=== PATIENT | male | born 1965 | race Caucasian/White ===

== ENCOUNTER 2016-04-19 01:11 | Inpatient (IN) | payer BC, OTHER ==
[~2016-04-19] VITALS: Ht 180.3 cm; Wt 89.9 kg
[2016-04-19] VITALS (7 sets, daily range): BP systolic 108–138; RESP 16–18; TEMP 97.5–98.5; Ht 180.3 cm; Wt 89.9 kg
[2016-04-19] MEDS ORDERED: OPTIRAY 350 100 ML VIAL HMH IV ONE (01:12)
[2016-04-19] MEDS ORDERED: ASPIRIN 81 MG CHEW TAB ONE (02:14)
[2016-04-19] MEDS ORDERED: SALINE FLUSH 10 ML FLUSH PRN (04:00)
[2016-04-19] MEDS ORDERED: ONDANSETRON 4 MG VIAL IV PUSH PRN (04:00)
[2016-04-19] MEDS: Atorvastatin 20 MG TAB PO SCH ×2 (05:48→21:35)
[2016-04-19] MEDS: PANTOPRAZOLE 40 MG TAB PO SCH (05:48)
[2016-04-19] MEDS: SODIUM CHLORIDE 0.9% 1,000 ML IV SCH (05:49)
[2016-04-19] MEDS: SODIUM CHLORIDE 0.9% FLUSH BAG 500 ML IV SCH (06:00)
[2016-04-19] MEDS: SALINE FLUSH 10 ML FLUSH SCH ×2 (09:33→21:35)
[2016-04-19] MEDS: Aspirin 325 MG TAB PO SCH (09:35)
[2016-04-19] MEDS: ENOXAPARIN 40 MG/0.4 ML SYR SUBQ SCH (09:35)
[2016-04-20] MEDS: SODIUM CHLORIDE 0.9% 1,000 ML IV SCH (00:54)
[2016-04-20] MEDS: SODIUM CHLORIDE 0.9% FLUSH BAG 500 ML IV SCH (05:32)
[2016-04-20] MEDS: PANTOPRAZOLE 40 MG TAB PO SCH (06:20)
[2016-04-20 07:23] VITALS: BP_SYST 110; RESP 16; TEMP 97.9
[2016-04-20] MEDS: SALINE FLUSH 10 ML FLUSH SCH ×2 (08:00→20:08)
[2016-04-20] MEDS: Aspirin 325 MG TAB PO SCH (08:20)
[2016-04-20] MEDS: ENOXAPARIN 40 MG/0.4 ML SYR SUBQ SCH (08:20)
[2016-04-20 11:00] VITALS: BP_SYST 112; RESP 16; TEMP 97.7
[2016-04-20 16:02] VITALS: BP_SYST 114; RESP 16; TEMP 97.5
[2016-04-20 19:00] VITALS: BP_SYST 129; RESP 18; TEMP 97.9
[2016-04-20] MEDS: Atorvastatin 40 MG TAB PO SCH (20:08)
[2016-04-20 23:50] VITALS: BP_SYST 130; RESP 18; TEMP 97.9
[2016-04-21 03:30] VITALS: BP_SYST 111; RESP 18; TEMP 97.9
[2016-04-21] MEDS: SODIUM CHLORIDE 0.9% FLUSH BAG 500 ML IV SCH (04:22)
[2016-04-21] MEDS: PANTOPRAZOLE 40 MG TAB PO SCH (07:18)
[2016-04-21 08:21] VITALS: BP_SYST 110; RESP 18; TEMP 97.5
[2016-04-21] MEDS: Aspirin 325 MG TAB PO SCH (08:34)
[2016-04-21] MEDS: ENOXAPARIN 40 MG/0.4 ML SYR SUBQ SCH (08:35)
[2016-04-21] MEDS: SALINE FLUSH 10 ML FLUSH SCH ×2 (08:35→20:34)
[2016-04-21 12:02] VITALS: BP_SYST 99; RESP 18; TEMP 97.6
[2016-04-21 17:00] VITALS: BP_SYST 101; RESP 18; TEMP 97.8
[2016-04-21 19:44] VITALS: BP_SYST 102; RESP 18; TEMP 97.8
[2016-04-21] MEDS: Atorvastatin 40 MG TAB PO SCH (20:26)
[2016-04-21 22:52] VITALS: BP_SYST 127; RESP 18; TEMP 98.1
[2016-04-22 03:17] VITALS: BP_SYST 91; RESP 18; TEMP 97.7
[2016-04-22] MEDS: SODIUM CHLORIDE 0.9% FLUSH BAG 500 ML IV SCH (05:17)
[2016-04-22] MEDS: PANTOPRAZOLE 40 MG TAB PO SCH (07:55)
[2016-04-22] MEDS: SALINE FLUSH 10 ML FLUSH SCH ×2 (08:19→20:31)
[2016-04-22] MEDS: Aspirin 325 MG TAB PO SCH (08:19)
[2016-04-22] MEDS: ENOXAPARIN 40 MG/0.4 ML SYR SUBQ SCH (08:20)
[2016-04-22 08:30] VITALS: BP_SYST 108; RESP 19; TEMP 97.4
[2016-04-22 11:56] VITALS: BP_SYST 110; RESP 20; TEMP 97.1
[2016-04-22 15:57] VITALS: BP_SYST 110; RESP 20; TEMP 97.7
[2016-04-22 19:44] VITALS: BP_SYST 112; RESP 17; TEMP 98.5
[2016-04-22] MEDS: Atorvastatin 40 MG TAB PO SCH (20:30)
[2016-04-22 23:18] VITALS: BP_SYST 90; RESP 17; TEMP 97.5
[2016-04-23 03:56] VITALS: BP_SYST 90; RESP 17; TEMP 97.9
[2016-04-23] MEDS: SODIUM CHLORIDE 0.9% FLUSH BAG 500 ML IV SCH (05:59)
[2016-04-23] MEDS: PANTOPRAZOLE 40 MG TAB PO SCH (06:34)
[2016-04-23 07:04] VITALS: BP_SYST 103; TEMP 97.5
[2016-04-23 07:05] VITALS: RESP 20
[2016-04-23] MEDS: Aspirin 325 MG TAB PO SCH (08:46)
[2016-04-23] MEDS: SALINE FLUSH 10 ML FLUSH SCH (08:46)
[2016-04-23] MEDS: ENOXAPARIN 40 MG/0.4 ML SYR SUBQ SCH (08:47)
[2016-04-23 10:57] VITALS: BP_SYST 111; RESP 20; TEMP 97.7
[2016-04-23 12:45] VITALS: BP_SYST 111; RESP 20; TEMP 97.7
== END 2016-04-23 13:30 | disposition home health service (06) | DRG 65 ==
LOC: ENRESERVTM → ENRESERVDT → ER 01:11 → EMR 03:58 → ENPENDDIS 03:58 → PCU2 05:02
PROVIDERS: ADMIT Internal Medicine; ATTEND Internal Medicine
DX: I63.9 Cerebral infarction, unspecified (principal); G81.94 Hemiplegia, unspecified affecting left nondominant side; I10 Essential (primary) hypertension; I65.21 Occlusion and stenosis of right carotid artery; E78.5 Hyperlipidemia, unspecified; F17.200 Nicotine dependence, unspecified, uncomplicated; Z82.49 Family history of ischemic heart disease and other diseases of the circulatory system; Z82.3 Family history of stroke
CPT/HCPCS: 36415; 70450; 70496; 70498; 70551; 71010; 80047; 80053; 80061; 81003; 81241; 82378; 82553; 83090; 84484; 85014; 85025; 85300; 85303; 85306; 85379; 85384; 85610; 85613; 85730; 85732; 86038; 86141; 86147; 93005; 93306; 94799; 99222; 99232; 99233